=== PATIENT | female | born 1975 | race Caucasian/White ===

== ENCOUNTER 2018-03-02 14:55 | Inpatient (IN) | payer OTHER ==
[~2018-03-02 14:55] MED LIST: EPINEPHrine 0.1 MG/ML SYG
[2018-03-02] MEDS: SOD CHLORIDE 0.9% 250 ML IV (15:02)
[2018-03-02 15:25] LABS: WHITE BLOOD COUNT 7.4 10^3/ul (4.8-10.8)
[2018-03-02 15:25] LABS: ABNORMAL IP MESSAGE 1; HEMATOCRIT 23.1 % (37.0-47.0); MEAN CORPUSCULAR HEMOGLOBIN 12.1 pg (29.0-33.0); MEAN CORPUSCULAR HGB CONC 22.5 g/dl (32.0-37.0); MEAN CORPUSCULAR VOLUME 53.7 fl (82.0-101.0); NUCLEATED RED BLOOD CELLS% 0.5 /100WBC (0.0-0.0); PLATELET COUNT 418 10^3/UL (140-415)
[2018-03-02 15:38] LABS: ADD MAN DIFF? YES; HEMOGLOBIN 5.2 g/dl (12.0-16.0); POSITIVE DIFF @See below
[2018-03-02 15:46] LABS: ALANINE AMINOTRANSFERASE 16 IU/L (13-69); ALBUMIN 4.6 g/dl (3.3-4.9); ALBUMIN/GLOBULIN RATIO 1.58; ALKALINE PHOSPHATASE 66 IU/L (42-121); ANION GAP 14 (8-16); ASPARTATE AMINO TRANSFERASE 19 IU/L (15-46); BILIRUBIN,INDIRECT 1.3 mg/dl (0-1.1); BILIRUBIN,TOTAL 1.3 mg/dl (0.2-1.3); BLOOD UREA NITROGEN 8 mg/dl (7-20); CALCIUM 8.9 mg/dl (8.4-10.2); CARBON DIOXIDE 23 mmol/L (21-31); CHLORIDE 109 mmol/L (97-110); CREATININE 0.47 mg/dl (0.44-1.00); GLUCOSE 99 mg/dl (70-220); POTASSIUM 3.7 mmol/L (3.5-5.1); SODIUM 142 mmol/L (135-144); TOTAL PROTEIN 7.5 g/dl (6.1-8.1)
[2018-03-02 15:47] LABS: INR 0.99; PROTIME 13.2 Sec (11.9-14.9)
[2018-03-02 15:48] LABS: PARTIAL THROMBOPLASTIN TIME 25.6 Sec (25.0-35.0)
[2018-03-02 15:57] LABS: TROPONIN-I < 0.010 ng/ml (0.000-0.120)
[2018-03-02] MEDS ORDERED: ONDANSETRON 4 MG INJ IV (16:30)
[2018-03-02] MEDS ORDERED: ACETAMINOPHEN 325 MG TAB PO (16:30)
[2018-03-02] MEDS ORDERED: LORAZEPAM 0.5 MG TAB PO (16:30)
[2018-03-02] MEDS ORDERED: MAGNESIUM HYDROXIDE 30ML CUP PO (16:30)
[2018-03-02] MEDS ORDERED: NACL 0.9% 3 ML SYG IV (16:30)
[2018-03-02] MEDS ORDERED: DOCUSATE SODIUM 100 MG CAP PO (16:30)
[2018-03-02 16:39] LABS: ANISOCYTOSIS 3+ (0-0); BAND NEUTROPHILS % (M) 1 % (0-4); EOSINOPHILS % (M) 1 % (0-7); ERYTHROBLAST% (NRBC) (M) 1 % (0-0); GIANT THROMBO% (M) 2 % (0-0); HYPOCHROMASIA 2+ (0-0); LYMPHOCYTES #M 1.4 10^3/ul (0.8-2.9); LYMPHOCYTES % (M) 19 % (15-51); MICROCYTOSIS 3+ (0-0); MONOCYTE #M 0.5 10^3/ul (0.3-0.9); MONOCYTES % (M) 7 % (0-11); OVALOCYTES 1+ (0-0); PLATELET ESTIMATE NORMAL; POIKILOCYTOSIS 1+ (0-0); POLYCHROMASIA 1+ (0-0); SEG NEUT #M 5.3 10^3/ul (1.6-7.5); SEGMENTED NEUTROPHILS (M) % 72 % (39-77); SMUDGE%M 10 % (0-0); TARGET CELLS 1+ (0-0)
[2018-03-02 17:05] LABS: TOTAL IRON BINDING CAPACITY 467 ug/dl (241-421)
[2018-03-02 17:15] LABS: IRON < 10 ug/dl (35-150)
[2018-03-02] MEDS: IBUPROFEN 800 MG TAB PO (17:17)
[2018-03-02 18:37] LABS: IMMEDIATE SPIN CROSSMATCH 1 4
[2018-03-02] MEDS: morphine 4 MG/ML VIAL IV (19:32)
[2018-03-02] MEDS: ONDANSETRON 4 MG INJ IV (19:32)
[2018-03-02] MEDS: SOD CHLORIDE 0.9% 1,000 ML IV (22:15)
[2018-03-03] MEDS: ONDANSETRON 4 MG INJ IV (01:04)
[2018-03-03 05:00] LABS: WHITE BLOOD COUNT 8.6 10^3/ul (4.8-10.8)
[2018-03-03 05:00] LABS: ABNORMAL IP MESSAGE 1; HEMATOCRIT 26.7 % (37.0-47.0); MEAN CORPUSCULAR HGB CONC 25.5 g/dl (32.0-37.0); MEAN CORPUSCULAR VOLUME 61.7 fl (82.0-101.0); MEAN PLATELET VOLUME 8.8 fl (7.4-10.4); NUCLEATED RED BLOOD CELLS% 0.5 /100WBC (0.0-0.0); PLATELET COUNT 307 10^3/UL (140-415); RED BLOOD COUNT 4.33 10^6/ul (4.20-5.40)
[2018-03-03 05:08] LABS: HEMOGLOBIN 6.8 g/dl (12.0-16.0); MEAN CORPUSCULAR HEMOGLOBIN 15.7 pg (29.0-33.0); POSITIVE DIFF @See below
[2018-03-03 05:09] LABS: ADD MAN DIFF? YES
[2018-03-03 05:23] LABS: ALANINE AMINOTRANSFERASE 24 IU/L (13-69); ALBUMIN 3.8 g/dl (3.3-4.9); ALKALINE PHOSPHATASE 50 IU/L (42-121); ANION GAP 10 (8-16); ASPARTATE AMINO TRANSFERASE 16 IU/L (15-46); BILIRUBIN,INDIRECT 1.8 mg/dl (0-1.1); BILIRUBIN,TOTAL 1.8 mg/dl (0.2-1.3); BLOOD UREA NITROGEN 8 mg/dl (7-20); CALCIUM 8.6 mg/dl (8.4-10.2); CARBON DIOXIDE 25 mmol/L (21-31); CHLORIDE 110 mmol/L (97-110); CREATININE 0.54 mg/dl (0.44-1.00); GLUCOSE 95 mg/dl (70-220); MAGNESIUM 2.1 mg/dl (1.7-2.5); SODIUM 141 mmol/L (135-144); TOTAL PROTEIN 6.5 g/dl (6.1-8.1)
[2018-03-03 07:30] LABS: ANISOCYTOSIS 3+ (0-0); BAND NEUTROPHILS % (M) 1 % (0-4); BASOPHIL #M 0.1 10^3/ul (0.0-0.0); BASOPHILS % (M) 2 % (0-2); EOSINOPHILS % (M) 2 % (0-7); HYPOCHROMASIA 1+ (0-0); LYMPHOCYTES #M 1.1 10^3/ul (0.8-2.9); LYMPHOCYTES % (M) 13 % (15-51); MICROCYTOSIS 3+ (0-0); MONOCYTE #M 0.1 10^3/ul (0.3-0.9); MONOCYTES % (M) 2 % (0-11); PLATELET ESTIMATE NORMAL; POIKILOCYTOSIS 2+ (0-0); POLYCHROMASIA 3+ (0-0); REACTIVE LYMPHOCYTES #M 0.2 10^3/ul (0.0-0.0); REACTIVE LYMPHOCYTES% (M) 3 % (0-0); SEG NEUT #M 6.6 10^3/ul (1.6-7.5); SEGMENTED NEUTROPHILS (M) % 77 % (39-77); SMUDGE%M 5 % (0-0)
[2018-03-03] MEDS: DIPHENHYDRAMINE 50 MG INJ IV (08:17)
[2018-03-03] MEDS: DEXAMETHASONE 10 MG/ML 1 ML INJ IV (08:21)
[2018-03-03] MEDS: FAMOTIDINE 20 MG INJ IV (08:38)
[2018-03-03] MEDS ORDERED: NITROGLYCERIN (SL) 0.4 MG TAB (09:12)
[2018-03-03] MEDS ORDERED: morphine 2 MG INJ IV (09:30)
[2018-03-03] MEDS: EPINEPHrine 1 MG INJ SC (09:39)
[2018-03-03] MEDS: NITROGLYCERIN (SL) 0.4 MG TAB SL (09:41)
[2018-03-03 10:06] LABS: ADD UMIC NO; UR ASCORBIC ACID NEGATIVE (NEGATIVE); UR BILIRUBIN (Dip) NEGATIVE (NEGATIVE); UR BLOOD (Dip) NEGATIVE (NEGATIVE); UR CLARITY CLEAR (CLEAR); UR COLOR STRAW (YELLOW); UR GLUCOSE (Dip) NEGATIVE (NEGATIVE); UR KETONES (Dip) NEGATIVE (NEGATIVE); UR LEUKOCYTE ESTERASE (Dip) NEGATIVE Leu/ul (NEGATIVE); UR NITRITE (Dip) NEGATIVE (NEGATIVE); UR SPECIFIC GRAVITY (Dip) 1.005 (1.003-1.030); UR TOTAL PROTEIN (Dip) NEGATIVE (NEGATIVE); UR UROBILINOGEN (Dip) NEGATIVE (NEGATIVE)
[2018-03-03] MEDS: morphine 2 MG INJ IV (10:17)
[2018-03-03] MEDS: NICOTINE (21 MG/24 HR) PATCH TRANSDERM (10:19)
[2018-03-03 10:21] LABS: PRETRANSFUSION BILIRUBIN 1.2 mg/dl
[2018-03-03 10:21] LABS: POST-TRANSFUSION BILIRUBIN 1.6 mg/dl
[2018-03-03 10:31] LABS: TROPONIN-I < 0.010 ng/ml (0.000-0.120)
[2018-03-03 12:05] LABS: ADD MAN DIFF? NO
[2018-03-03 12:18] LABS: ABNORMAL IP MESSAGE 1; BASOPHIL # 0.1 10^3/ul (0.0-0.1); BASOPHILS % 0.9 % (0.0-2.0); EOSINOPHILS # 0.2 10^3/ul (0.0-0.5); EOSINOPHILS % 1.9 % (0.0-7.0); HEMATOCRIT 30.8 % (37.0-47.0); LYMPHOCYTES # 1.9 10^3/ul (0.8-2.9); LYMPHOCYTES % 24.3 % (15.0-51.0); MEAN CORPUSCULAR HEMOGLOBIN 16.4 pg (29.0-33.0); MEAN CORPUSCULAR VOLUME 63.2 fl (82.0-101.0); MONOCYTE # 0.6 10^3/ul (0.3-0.9); NEUTROPHILS % 64.4 % (39.0-77.0); NUCLEATED RED BLOOD CELLS% 0.4 /100WBC (0.0-0.0); PLATELET COUNT 347 10^3/UL (140-415); RED BLOOD COUNT 4.87 10^6/ul (4.20-5.40)
[2018-03-03 12:18] LABS: WHITE BLOOD COUNT 7.8 10^3/ul (4.8-10.8)
[2018-03-03 12:23] LABS: POSITIVE DIFF @See below
[2018-03-03] MEDS: ALBUTEROL/IPRATROPIUM (NEB) 3 ML AMP HHN (14:45)
[2018-03-03] MEDS: HYDROCODONE/APAP (5/325) TAB PO ×2 (15:50→16:13)
[2018-03-03] MEDS: IBUPROFEN 400 MG TAB PO ×2 (17:36→22:57)
[2018-03-03 17:56] LABS: TROPONIN-I < 0.010 ng/ml (0.000-0.120)
[2018-03-03] MEDS: METHYLPREDNISOLONE 125 MG INJ IV (18:08)
[2018-03-03] MEDS ORDERED: LOPERAMIDE 2 MG CAP PO (18:30)
[2018-03-04] MEDS: METHYLPREDNISOLONE 125 MG INJ IV ×2 (00:23→05:44)
[2018-03-04] MEDS: DIPHENHYDRAMINE 25 MG CAP PO (01:27)
[2018-03-04 01:40] LABS: TROPONIN-I < 0.010 ng/ml (0.000-0.120)
[2018-03-04 05:33] LABS: ADD MAN DIFF? NO
[2018-03-04] MEDS: IBUPROFEN 400 MG TAB PO (05:44)
[2018-03-04 05:45] LABS: ABNORMAL IP MESSAGE 1; BASOPHILS % 0.1 % (0.0-2.0); HEMOGLOBIN 7.8 g/dl (12.0-16.0); LYMPHOCYTES # 0.6 10^3/ul (0.8-2.9); LYMPHOCYTES % 5.6 % (15.0-51.0); MEAN CORPUSCULAR HEMOGLOBIN 16.4 pg (29.0-33.0); MEAN CORPUSCULAR VOLUME 63.2 fl (82.0-101.0); MONOCYTE # 0.2 10^3/ul (0.3-0.9); MONOCYTES % 1.7 % (0.0-11.0); NEUTROPHIL # 10.2 10^3/ul (1.6-7.5); NEUTROPHILS % 91.7 % (39.0-77.0); NUCLEATED RED BLOOD CELLS% 0.3 /100WBC (0.0-0.0); PLATELET COUNT 342 10^3/UL (140-415); RED BLOOD COUNT 4.75 10^6/ul (4.20-5.40); RED CELL DISTRIBUTION WIDTH 34.6 % (11.5-14.5)
[2018-03-04 05:45] LABS: WHITE BLOOD COUNT 11.1 10^3/ul (4.8-10.8)
[2018-03-04 05:52] LABS: POSITIVE DIFF @See below
[2018-03-04 06:11] LABS: ANION GAP 15 (8-16); BLOOD UREA NITROGEN 13 mg/dl (7-20); CALCIUM 9.6 mg/dl (8.4-10.2); CARBON DIOXIDE 22 mmol/L (21-31); CHLORIDE 107 mmol/L (97-110); GLUCOSE 192 mg/dl (70-220); MAGNESIUM 2.1 mg/dl (1.7-2.5); PHOSPHORUS 3.2 mg/dl (2.5-4.9); POTASSIUM 3.6 mmol/L (3.5-5.1); SODIUM 140 mmol/L (135-144)
[2018-03-04] MEDS: NICOTINE (21 MG/24 HR) PATCH TRANSDERM (08:58)
== END 2018-03-04 12:00 | disposition home or self-care (01) | DRG 812 ==
LOC: E/R 14:55 → ICU 03-03 12:19 → MS1 16:05
PROC: 30233N1 Transfusion of Nonautologous Red Blood Cells into Peripheral Vein, Percutaneous Approach (ICD-10-PCS; 2018-03-02)
PROC: 30233N1 Transfusion of Nonautologous Red Blood Cells into Peripheral Vein, Percutaneous Approach (ICD-10-PCS; principal; 2018-03-03)
DX: D62 Acute posthemorrhagic anemia (principal); F17.210 Nicotine dependence, cigarettes, uncomplicated; N92.0 Excessive and frequent menstruation with regular cycle; T80.89XA Other complications following infusion, transfusion and therapeutic injection, initial encounter; Y84.8 Other medical procedures as the cause of abnormal reaction of the patient, or of later complication, without mention of misadventure at the time of the procedure; Y92.230 Patient room in hospital as the place of occurrence of the external cause; D50.9 Iron deficiency anemia, unspecified
CPT/HCPCS: 36415; 36430; 71045; 76856; 80048; 80053; 81003; 81025; 82962; 83540; 83735; 84100; 84484; 85025; 85610; 85730; 86078; 86850; 86900; 86901; 86920; 87075; 93005; 93306; 99291-25

== ENCOUNTER 2018-03-12 13:40 | Emergency (ER) | payer OTHER ==
[2018-03-12 14:57] LABS: WHITE BLOOD COUNT 8.7 10^3/ul (4.8-10.8)
[2018-03-12 14:57] LABS: ABNORMAL IP MESSAGE 1; HEMATOCRIT 33.3 % (37.0-47.0); HEMOGLOBIN 8.8 g/dl (12.0-16.0); MEAN CORPUSCULAR HEMOGLOBIN 17.1 pg (29.0-33.0); MEAN CORPUSCULAR HGB CONC 26.4 g/dl (32.0-37.0); MEAN CORPUSCULAR VOLUME 64.8 fl (82.0-101.0); PLATELET COUNT 423 10^3/UL (140-415); RED BLOOD COUNT 5.14 10^6/ul (4.20-5.40)
[2018-03-12 15:10] LABS: ADD MAN DIFF? YES; POSITIVE DIFF @See below
[2018-03-12 15:13] LABS: URINE BLOOD (Dip) POC 3+ (NEGATIVE); URINE GLUCOSE (Dip) POC Negative (NEGATIVE); URINE KETONES (Dip) POC Trace (NEGATIVE); URINE LEUKOCYTE EST (Dip) POC Negative (NEGATIVE); URINE NITRITE (Dip) POC Negative (NEGATIVE); URINE TOTAL PROTEIN POC 1+ (NEGATIVE)
[2018-03-12 15:14] LABS: ANION GAP 13 (8-16); BLOOD UREA NITROGEN 11 mg/dl (7-20); CALCIUM 9.1 mg/dl (8.4-10.2); CARBON DIOXIDE 22 mmol/L (21-31); CHLORIDE 107 mmol/L (97-110); CREATININE 0.56 mg/dl (0.44-1.00); GLUCOSE 118 mg/dl (70-220); SODIUM 138 mmol/L (135-144)
[2018-03-12 15:29] LABS: ANISOCYTOSIS 3+ (0-0); BAND NEUTROPHILS #M 0.2 10^3/ul (0.0-0.6); BAND NEUTROPHILS % (M) 3 % (0-4); BASOPHILS % (M) 1 % (0-2); LYMPHOCYTES #M 1.3 10^3/ul (0.8-2.9); LYMPHOCYTES % (M) 15 % (15-51); MICROCYTOSIS 3+ (0-0); MONOCYTE #M 0.4 10^3/ul (0.3-0.9); MONOCYTES % (M) 5 % (0-11); MYELOCYTES #M 0.1 10^3/ul (0.0-0.0); MYELOCYTES % (M) 2 % (0-0); PLATELET ESTIMATE INCREASED; POIKILOCYTOSIS 2+ (0-0); POLYCHROMASIA 1+ (0-0); SEG NEUT #M 6.5 10^3/ul (1.6-7.5); SEGMENTED NEUTROPHILS (M) % 74 % (39-77); SMUDGE%M 13 % (0-0)
== END 2018-03-12 16:14 | disposition home or self-care (01) ==
LOC: FTE 13:40
DX: N93.9 Abnormal uterine and vaginal bleeding, unspecified (principal); E66.9 Obesity, unspecified; Z68.29 Body mass index [BMI] 29.0-29.9, adult; Z87.891 Personal history of nicotine dependence
CPT/HCPCS: 80048; 81003; 81025; 85025; 99283